=== PATIENT | male | born 1980 | race Caucasian/White ===

== ENCOUNTER 2020-07-16 12:54 | Emergency (ER) | payer MEDICAID ==
--- NOTE | 2020-07-16 13:33 | EDM.PDOC ---
ED HPI GENERAL MEDICAL PROBLEM - General Chief Complaint: Chest Pain Stated Complaint: CHEST PAIN Time Seen by Provider: 07/16/20 13:10 Source of Information: Reports: Patient History Limitations: Reports: No Limitations, Other (ED vital signs temp 98.1, pulse 91, respiratory rate 16, blood pressure 141/93, pulse ox 97% on room air.) - History of Present Illness INITIAL COMMENTS - FREE TEXT/NARRATIVE: 40-year-old male presents to the emergency department with complaints of midsternal chest discomfort/pressure. Patient states this developed Wednesday afternoon as he was sitting and watching TV. It developed suddenly. He states he felt a pressure and then both of his hands went numb from his fingers to the tips. Did admit to having palpitations at the onset of the discomfort but this subsided as well. This lasted a short amount of time but the chest pressure has remained. He states nothing makes it worse or better. Deep breathing has no effect. He has denied any cough, fever, chills, nausea or vomiting. He notices a change with palpation just left of his sternum, as he states he feels relief of the pain with palpation. States he was a 1 pack a day smoker for 20 years up until 3 days ago. States he drinks 2 cups of coffee a day. Denies any medical history and does not take any prescription medications. 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 Patient also does admit to being under a high amount of stress as he has currently going through a divorce and has had more stress at work. Onset: Gradual Middle Chest Pain Score (Numeric/FACES): 2 - Related Data Allergies Allergy/AdvReac Type Severity Reaction Status Date / Time No Known Allergies Allergy Verified 07/16/20 13:04 Home Meds: Home Meds . [No Known Home Meds] 07/16/20 [History] Past Medical History - Past Surgical History HEENT Surgical History: Reports: Oral Surgery Musculoskeletal Surgical History: Reports: Other (See Below) Other Musculoskeletal Surgeries/Procedures:: Thumb surgery. Social & Family History - Tobacco Use Tobacco Use Status *Q: Former Tobacco User Used Tobacco, but Quit: Yes Month/Year Tobacco Last Used: 07/11 - Caffeine Use Caffeine Use: Reports: Coffee, Soda - Recreational Drug Use Recreational Drug Use: No ED ROS GENERAL - Review of Systems Review Of Systems: See Below Constitutional: Reports: No Symptoms. Denies: Fever, Chills, Diaphoresis HEENT: Reports: No Symptoms, Glasses Respiratory: Reports: No Symptoms. Denies: Shortness of Breath, Pleuritic Chest Pain, Cough Cardiovascular: Reports: Chest Pain, Palpitations. Denies: Dyspnea on Exertion, Edema, Lightheadedness, Orthopnea GI/Abdominal: Reports: No Symptoms. Denies: Abdominal Pain, Constipation, Diarrhea, Nausea, Vomiting : Reports: No Symptoms Musculoskeletal: Reports: No Symptoms Skin: Reports: No Symptoms Neurological: Reports: No Symptoms Psychiatric: Reports: No Symptoms Hematologic/Lymphatic: Reports: No Symptoms Immunologic: Reports: No Symptoms ED EXAM, GENERAL - Physical Exam Exam: See Below Exam Limited By: No Limitations General Appearance: Alert, WD/WN, No Apparent Distress Eye Exam: Bilateral Eye: PERRL Ears: Normal External Exam, Hearing Grossly Normal Nose: Normal Inspection Throat/Mouth: Normal Inspection, Normal Voice, No Airway Compromise Head: Atraumatic, Normocephalic Neck: Normal Inspection, Supple, Non-Tender, Full Range of Motion Respiratory/Chest: No Respiratory Distress, Lungs Clear, Normal Breath Sounds, No Accessory Muscle Use, Chest Non-Tender Cardiovascular: Normal Peripheral Pulses, Regular Rate, Rhythm, No Edema, No Murmur Peripheral Pulses: 2+: Radial (L), Radial (R) GI/Abdominal: Normal Bowel Sounds, Soft, Non-Tender, No Distention (Male) Exam: Deferred Rectal (Males) Exam: Deferred Back Exam: Normal Inspection, Full Range of Motion Extremities: Normal Inspection, Normal Range of Motion, Non-Tender, No Pedal Edema, Normal Capillary Refill Neurological: Alert, Oriented, Normal Cognition Psychiatric: Normal Affect, Normal Mood Skin Exam: Warm, Dry, Intact, Normal Color, No Rash Lymphatic: No Adenopathy #1 Interpretation EKG Date: 07/16/20 Time: 13:01 Rhythm: NSR Rate (Beats/Min): 93 [place]: Normal P-Wave: Present QRS: Normal ST-T: Normal QT: Normal Comparison: NA - No Prior EKG EKG Interpretation Comments: Per Dr. Ibanez interpretation: Normal EKG Course - Vital Signs Text/Narrative:: I have ordered an EKG, chest x-ray, CBC, CMP, magnesium, and a troponin on this patient. Last Recorded V/S: Last Vital Signs Temp 98.1 F 07/16/20 13:01 Pulse 91 07/16/20 13:01 Resp 16 07/16/20 13:01 BP 141/93 H 07/16/20 13:01 Pulse Ox 97 07/16/20 13:01 - Orders/Labs/Meds Orders: Active Orders 24 hr Category Date Time Status EKG Documentation Completion [RC] STAT Care 07/16/20 13:06 Active Chest 1V Frontal [CR] Stat Exams 07/16/20 13:15 Taken Labs: Laboratory Tests 07/16/20 07/16/20 Range/Units 13:25 13:25 WBC 6.03 (4.23-9.07) K/mm3 RBC 4.75 (4.63-6.08) M/mm3 Hgb 14.6 (13.7-17.5) gm/dl Hct 43.5 (40.1-51.0) % MCV 91.6 (79.0-92.2) fl MCH 30.7 (25.7-32.2) pg MCHC 33.6 (32.2-35.5) g/dl RDW Std Deviation 43.9 (35.1-43.9) fL Plt Count 211 (163-337) K/mm3 MPV 10.0 (9.4-12.3) fl Neut % (Auto) 72.4 H (34.0-67.9) % Lymph % (Auto) 16.6 L (21.8-53.1) % Falls % (Auto) 8.8 (5.3-12.2) % Eos % (Auto) 1.5 (0.8-7.0) Baso % (Auto) 0.5 (0.1-1.2) % Neut # (Auto) 4.37 (1.78-5.38) K/mm3 Lymph # (Auto) 1.00 L (1.32-3.57) K/mm3 Falls # (Auto) 0.53 (0.30-0.82) K/mm3 Eos # (Auto) 0.09 (0.04-0.54) K/mm3 Baso # (Auto) 0.03 (0.01-0.08) K/mm3 Sodium 144 (136-145) mEq/L Potassium 4.0 (3.5-5.1) mEq/L Chloride 107 (98-107) mEq/L Carbon Dioxide 28 (21-32) mEq/L Anion Gap 13.0 (5-15) BUN 14 (7-18) mg/dL Creatinine 1.3 (0.7-1.3) mg/dL Est Cr Clr Drug Dosing 75.53 mL/min Estimated GFR (MDRD) > 60 (>60) mL/min BUN/Creatinine Ratio 10.8 L (14-18) Glucose 102 (74-106) mg/dL Calcium 8.8 (8.5-10.1) mg/dL Magnesium 2.1 (1.8-2.4) mg/dl Total Bilirubin 0.3 (0.2-1.0) mg/dL AST 16 (15-37) U/L ALT 28 (16-63) U/L Alkaline Phosphatase 69 (46-116) U/L Troponin I < 0.017 (0.00-0.056) ng/mL Total Protein 7.2 (6.4-8.2) g/dl Albumin 3.8 (3.4-5.0) g/dl Globulin 3.4 gm/dL Albumin/Globulin Ratio 1.1 (1-2) - Radiology Interpretation Free Text/Narrative:: Nothing acute is appreciated on portable chest x-ray. - Re-Assessments/Exams Free Text/Narrative Re-Assessment/Exam: 07/16/20 14:20 CBC and CMP are unremarkable troponin is less than 0.017 07/16/20 14:20 Patient will be discharged to home recommend that he take ibuprofen or Tylenol for the discomfort and follow-up with the clinic provider early next week. Departure - Departure Time of Disposition: 14:20 Disposition: Home, Self-Care 01 Condition: Good Clinical Impression: Atypical chest pain Instructions: Nonspecific Chest Pain, Adult, [id number] Referrals: PCP,None [Primary Care Provider] - Forms: ED Department Discharge Additional Instructions: You were seen in the emergency department complaints of chest pain that started on Wednesday. Full cardiac work-up was unremarkable your chest x-ray was clear, your EKG was unremarkable as well. Labs did not show any signs of infection or electrolyte abnormalities. Your cardiac markers were also unremarkable. Your symptoms are likely anxiety related as you have a lot of stress in your life at this time. Recommend that you take ibuprofen 600 mg every 6 hours as needed for the discomfort. If this does not resolve follow-up in the clinic early next week. You can schedule an appointment at [phone]. Sepsis Event Note (ED) - Evaluation Sepsis Screening Result: No Definite Risk - Focused Exam Vital Signs: Vital Signs Temp Pulse Resp BP Pulse Ox 07/16/20 13:01 98.1 F 91 16 141/93 H 97 - My Orders Last 24 Hours: My Active Orders 07/16/20 13:06 EKG Documentation Completion [RC] STAT 07/16/20 13:15 Chest 1V Frontal [CR] Stat - Assessment/Plan Last 24 Hours: My Active Orders 07/16/20 13:06 EKG Documentation Completion [RC] STAT 07/16/20 13:15 Chest 1V Frontal [CR] Stat
--- NOTE | 2020-07-16 14:23 | CR ---
Chest: Portable view of the chest was obtained. Comparison: No prior chest imaging is available. Heart size and mediastinum are normal. Lungs are clear with no acute parenchymal change. Bony structures are grossly intact. Impression: 1. Nothing acute is seen on portable chest x-ray. Diagnostic code #2
== END 2020-07-16 14:37 | disposition home or self-care (01) ==
LOC: JD.ED 12:54
DX: R07.89 Other chest pain (principal); R00.2 Palpitations; Z87.891 Personal history of nicotine dependence
CPT/HCPCS: 36415; 71045; 71045-26; 80053; 83735; 84484; 85025; 93005; 93010; 99284; 99285-25

== ENCOUNTER 2024-11-27 18:58 | Emergency (ER) | payer SELFPAY ==
[2024-11-27] MEDS: cefTRIAXone 2 GM Vial IVPUSH ONE (20:01)
[2024-11-27] MEDS: Sodium Chloride 0.9% 1,000 ML IV ONE (20:01)
[2024-11-27 20:07] LABS: BASOPHILS PERCENT AUTO 0.4 % (0.0-1.0); EOSINOPHILS ABSOLUTE AUTO 0.1 K/mm3 (0.0-0.4); EOSINOPHILS PERCENT AUTO 0.9 % (0.0-6.0); HEMATOCRIT 41.1 % (42.0-52.0); HEMOGLOBIN 14.2 gm/dl (14.0-18.0); IMMATURE GRAN ABSOLUTE AUTO 0.02 K/mm3 (0.00-0.05); IMMATURE GRAN PERCENT AUTO 0.2 % (0.0-0.4); LYMPHOCYTES PERCENT AUTO 11.7 % (24.0-44.0); MEAN CORPUSCULAR HEMOGLOBIN 30.4 pg (28.0-32.0); MEAN CORPUSCULAR HGB CONC 34.5 g/dl (32.0-36.0); MEAN PLATELET VOLUME 9.5 fl (9.4-12.4); MONOCYTES ABSOLUTE AUTO 0.7 K/mm3 (0.0-0.8); MONOCYTES PERCENT AUTO 8.6 % (0.0-8.0); NEUTROPHILS ABSOLUTE AUTO 6.7 K/mm3 (1.8-7.7); NEUTROPHILS PERCENT AUTO 78.2 % (41.0-71.0); PLATELET COUNT,PLT 154 K/mm3 (150-400); RED BLOOD CELL COUNT 4.67 M/mm3 (4.52-5.90); WHITE BLOOD CELL COUNT,WBC 8.57 K/mm3 (3.9-11.3)
[2024-11-27 20:38] LABS: A/G RATIO 1.2 (1-2); ALBUMIN 3.9 g/dl (3.4-5.0); ANION GAP 12.8 (5-15); BILIRUBIN TOTAL 0.6 mg/dL (0.2-1.0); BUN/CREATININE RATIO 10.8 (14-18); CALCIUM 8.9 mg/dL (8.5-10.1); CREATININE 1.2 mg/dL (0.7-1.3); EST CRCL DRUG DOSING (CG) 78.56 mL/min; POTASSIUM,K 3.8 mEq/L (3.5-5.1); PROTEIN TOTAL,TP 7.3 g/dl (6.4-8.2)
[2024-11-27] MEDS: Ketorolac 30 MG/ML SDV IVPUSH ONE (20:59)
== END 2024-11-27 21:04 | disposition home or self-care (01) ==
LOC: JD.ED 18:58
DX: K08.89 Other specified disorders of teeth and supporting structures (principal); Z86.16 Personal history of COVID-19
CPT/HCPCS: 36415; 80053; 85025; 96374; 96375; 99283; J0696; J1885; J7030